=== PATIENT | female | born 2000 | race Two or more races ===

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

== ENCOUNTER 2020-12-04 20:19 | Emergency (ER) | payer OTHER ==
[~2020-12-04] VITALS: Ht 162.6 cm; Wt 98.0 kg
[2020-12-04 22:28] VITALS: BP 138/89
== END 2020-12-04 22:32 | disposition home or self-care (01) ==
LOC: ER 20:19
DX: R07.89 Other chest pain (principal); F41.9 Anxiety disorder, unspecified; F32.9 Major depressive disorder, single episode, unspecified
CPT/HCPCS: 71046; 93005; 99283

== ENCOUNTER 2020-12-21 08:59 | Emergency (ER) | payer OTHER ==
[~2020-12-21] VITALS: Ht 162.6 cm; Wt 110.0 kg
[2020-12-21] MEDS ORDERED: SODIUM CHLORIDE 0.9% 1,000 ML IV ONE (09:15)
[2020-12-21 09:38] LABS: BASOPHILS % 0.3 % (0.0-2.0); HEMATOCRIT. 37.6 % (36.0-48.0); HEMOGLOBIN. 13.3 g/dL (12.0-16.0); LYMPHOCYTES % 25.4 % (20.0-50.0); MEAN CORPUSCULAR HEMOGLOBIN 31.4 pg (28.0-32.0); MEAN CORPUSCULAR VOLUME 89.1 fL (81.0-99.0); MEAN PLATELET VOLUME 8.5 fl (7.4-10.4); MONOCYTES % 6.2 % (2.0-8.0); NEUTROPHILS % 67.1 % (40.0-76.0); PLATELET 264 x1000/uL (130-400); RED BLOOD CELL COUNT 4.22 mill/uL (4.2-5.4); RED CELL DISTRIBUTION WIDTH 13.3 % (11.6-14.6)
[2020-12-21 09:46] LABS: CHLORIDE 108 mEq/L (98-107)
[2020-12-21 09:48] LABS: HCG SCREEN NEGATIVE
[2020-12-21 10:24] LABS: CLARITY URINE CLEAR (CLEAR); COLOR URINE YELLOW (YELLOW); KETONES URINE NEGATIVE (NEGATIVE); LEUKOCYTE ESTERASE URINE 2+ (NEGATIVE); NITRITE URINE NEGATIVE (NEGATIVE); OCCULT BLOOD URINE NEGATIVE (NEGATIVE); PH URINE 7.5 (4.5-8.0); PROTEIN URINE NEGATIVE (NEGATIVE); SPECIFIC GRAVITY URINE 1.017 (1.005-1.030); UROBILINOGEN URINE 0.2 E.U./dL (0.2-1.0)
[2020-12-21] MEDS ORDERED: DOCU100T PO (11:59)
[2020-12-21] MEDS ORDERED: MOM MT (11:59)
[2020-12-21] MEDS ORDERED: NITR-87 MT (12:07)
[2020-12-21 12:14] VITALS: BP 115/70
== END 2020-12-21 12:17 | disposition home or self-care (01) ==
LOC: ER 08:59
DX: T18.5XXA Foreign body in anus and rectum, initial encounter (principal); K59.00 Constipation, unspecified; X58.XXXA Exposure to other specified factors, initial encounter; Y93.89 Activity, other specified; Y92.89 Other specified places as the place of occurrence of the external cause; Y99.8 Other external cause status
CPT/HCPCS: 36415; 72170; 80053; 81003; 81025; 83690; 84703; 85025; 99285; J7030; Z7610

== ENCOUNTER 2020-12-27 21:01 | Emergency (ER) | payer OTHER ==
[~2020-12-27] VITALS: Ht 162.6 cm; Wt 105.0 kg
[~2020-12-27 21:01] MED LIST: DOCU100T PO; MOM MT; NITR-87 MT
[2020-12-27] MEDS ORDERED: CEFTRIAXONE 1 G PREMIX 50 ML IV ONE (22:45)
[2020-12-27] MEDS ORDERED: SODIUM CHLORIDE 0.9% 1,000 ML IV ONE (22:45)
[2020-12-27 23:09] LABS: BASOPHILS % 0.8 % (0.0-2.0); HEMATOCRIT. 40.4 % (36.0-48.0); HEMOGLOBIN. 13.7 g/dL (12.0-16.0); LYMPHOCYTES % 31.1 % (20.0-50.0); MEAN CORPUSCULAR HEMOGLOBIN 30.1 pg (28.0-32.0); MEAN CORPUSCULAR VOLUME 88.4 fL (81.0-99.0); MEAN PLATELET VOLUME 8.5 fl (7.4-10.4); MONOCYTES % 6.5 % (2.0-8.0); NEUTROPHILS % 60.6 % (40.0-76.0); PLATELET 295 x1000/uL (130-400); RED BLOOD CELL COUNT 4.57 mill/uL (4.2-5.4); RED CELL DISTRIBUTION WIDTH 13.1 % (11.6-14.6)
[2020-12-27 23:17] LABS: CHLORIDE 108 mEq/L (98-107)
[2020-12-27 23:22] LABS: HCG SCREEN NEGATIVE
[2020-12-27 23:57] LABS: CLARITY URINE CLEAR (CLEAR); COLOR URINE YELLOW (YELLOW); KETONES URINE NEGATIVE (NEGATIVE); LEUKOCYTE ESTERASE URINE 2+ (NEGATIVE); NITRITE URINE NEGATIVE (NEGATIVE); OCCULT BLOOD URINE NEGATIVE (NEGATIVE); PROTEIN URINE NEGATIVE (NEGATIVE); SPECIFIC GRAVITY URINE 1.013 (1.005-1.030); UROBILINOGEN URINE 0.2 E.U./dL (0.2-1.0)
[2020-12-28] MEDS ORDERED: SULF1TAB48 MT (00:10)
[2020-12-28 02:30] VITALS: BP 124/79
== END 2020-12-28 02:55 | disposition home or self-care (01) ==
LOC: ER 21:01
DX: N12 Tubulo-interstitial nephritis, not specified as acute or chronic (principal)
CPT/HCPCS: 36415; 80053; 81003; 81025; 84703; 85025; 96365; 99284; J0696; J7030

== ENCOUNTER 2021-01-28 20:18 | Emergency (ER) | payer OTHER ==
[~2021-01-28] VITALS: Ht 162.6 cm; Wt 105.0 kg
[~2021-01-28 20:18] MED LIST changes: +CEPH500C2 MT; +SULF1TAB48 MT
[2021-01-29 01:00] VITALS: BP 111/72
[2021-01-29] MEDS ORDERED: FEO RC (01:03)
== END 2021-01-29 01:14 | disposition home or self-care (01) ==
LOC: ER 20:18
DX: K59.00 Constipation, unspecified (principal); R10.9 Unspecified abdominal pain; Z87.440 Personal history of urinary (tract) infections; Z79.899 Other long term (current) drug therapy
CPT/HCPCS: 99282

== ENCOUNTER 2021-02-05 15:14 | Emergency (ER) | payer OTHER ==
[~2021-02-05] VITALS: Ht 162.6 cm; Wt 106.0 kg
[~2021-02-05 15:14] MED LIST changes: +FEO RC
[2021-02-05] MEDS ORDERED: ACETAMINOPHEN 325MG TABLET PO STA (20:18)
[2021-02-05] MEDS ORDERED: SODIUM CHLORIDE 0.9% 500 ML IV ONE (20:30)
[2021-02-05 21:02] LABS: BASOPHILS % 0.3 % (0.0-2.0); HEMATOCRIT. 41.8 % (36.0-48.0); HEMOGLOBIN. 14.5 g/dL (12.0-16.0); MEAN CORPUSCULAR HEMOGLOBIN 31.3 pg (28.0-32.0); MEAN CORPUSCULAR VOLUME 90.2 fL (81.0-99.0); MEAN PLATELET VOLUME 8.3 fl (7.4-10.4); MONOCYTES % 5.9 % (2.0-8.0); NEUTROPHILS % 63.8 % (40.0-76.0); PLATELET 324 x1000/uL (130-400); RED BLOOD CELL COUNT 4.64 mill/uL (4.2-5.4)
[2021-02-05 21:04] LABS: CLARITY URINE CLEAR (CLEAR); COLOR URINE YELLOW (YELLOW); KETONES URINE 1+ (NEGATIVE); LEUKOCYTE ESTERASE URINE 1+ (NEGATIVE); NITRITE URINE NEGATIVE (NEGATIVE); OCCULT BLOOD URINE NEGATIVE (NEGATIVE); PROTEIN URINE NEGATIVE (NEGATIVE); SPECIFIC GRAVITY URINE 1.023 (1.005-1.030); UROBILINOGEN URINE 0.2 E.U./dL (0.2-1.0)
[2021-02-05 21:05] LABS: CHLORIDE 110 mEq/L (98-107)
[2021-02-05 21:11] LABS: HCG SCREEN NEGATIVE
[2021-02-05] MEDS ORDERED: IOHEXOL-350 100 ML BOTTLE ONE (22:48)
[2021-02-05] MEDS ORDERED: CEPH500T MT (23:17)
[2021-02-05] MEDS ORDERED: IBUP-2028 MT (23:17)
[2021-02-06 00:07] VITALS: BP 132/84
== END 2021-02-06 00:08 | disposition home or self-care (01) ==
LOC: ER 15:39
DX: N39.0 Urinary tract infection, site not specified (principal); R51.9 Headache, unspecified; Z86.16 Personal history of COVID-19; Z87.440 Personal history of urinary (tract) infections
CPT/HCPCS: 36415; 70496; 80053; 81003; 81025; 84703; 85025; 96360; 99285; J7030; Q9967

== ENCOUNTER 2021-10-07 08:02 | Emergency (ER) | payer OTHER ==
[~2021-10-07] VITALS: Ht 162.6 cm; Wt 104.0 kg
[~2021-10-07 08:02] MED LIST changes: +CEPH500T MT; +IBUP-2028 MT
[2021-10-07 08:36] LABS: CLARITY URINE CLEAR (CLEAR); COLOR URINE YELLOW (YELLOW); KETONES URINE NEGATIVE (NEGATIVE); LEUKOCYTE ESTERASE URINE TRACE (NEGATIVE); NITRITE URINE NEGATIVE (NEGATIVE); OCCULT BLOOD URINE NEGATIVE (NEGATIVE); PH URINE 5.5 (4.5-8.0); PROTEIN URINE NEGATIVE (NEGATIVE); SPECIFIC GRAVITY URINE 1.015 (1.005-1.030); UROBILINOGEN URINE 0.2 E.U./dL (0.2-1.0)
[2021-10-07] MEDS ORDERED: NITR-87 MT (08:41)
[2021-10-07] MEDS ORDERED: PYR200 MT (08:41)
[2021-10-07 08:52] VITALS: BP 136/84
== END 2021-10-07 08:54 | disposition home or self-care (01) ==
LOC: ER 08:02
DX: R30.0 Dysuria (principal); R10.2 Pelvic and perineal pain; R39.15 Urgency of urination; R07.89 Other chest pain; R03.0 Elevated blood-pressure reading, without diagnosis of hypertension; Z87.440 Personal history of urinary (tract) infections
CPT/HCPCS: 81003; 81025; 99283

== ENCOUNTER 2021-10-24 03:57 | Emergency (ER) | payer OTHER ==
[~2021-10-24] VITALS: Ht 162.6 cm; Wt 107.1 kg
[~2021-10-24 03:57] MED LIST changes: +PYR200 MT
[2021-10-24 04:04] VITALS: BP 135/98
[2021-10-24 05:25] LABS: BASOPHILS % 0.6 % (0.0-2.0); EOSINOPHILS % 1.6 % (0.0-5.0); HEMATOCRIT. 39.9 % (36.0-48.0); HEMOGLOBIN. 13.8 g/dL (12.0-16.0); LYMPHOCYTES % 32.3 % (20.0-50.0); MEAN CORPUSCULAR HEMOGLOBIN 30.9 pg (28.0-32.0); MEAN CORPUSCULAR VOLUME 89.5 fL (81.0-99.0); MEAN PLATELET VOLUME 8.1 fl (7.4-10.4); MONOCYTES % 5.6 % (2.0-8.0); NEUTROPHILS % 59.9 % (40.0-76.0); PLATELET 317 x1000/uL (130-400); RED BLOOD CELL COUNT 4.45 mill/uL (4.2-5.4); RED CELL DISTRIBUTION WIDTH 13.4 % (11.6-14.6)
[2021-10-24 05:31] LABS: CHLORIDE 108 mEq/L (98-107)
[2021-10-24] MEDS ORDERED: KETOROLAC 30MG/ML VIAL IV STA (05:57)
[2021-10-24] MEDS ORDERED: ONDANSETRON HCL 4MG/2ML INJ IV STA (05:57)
[2021-10-24 06:19] LABS: CLARITY URINE CLEAR (CLEAR); COLOR URINE YELLOW (YELLOW); KETONES URINE NEGATIVE (NEGATIVE); LEUKOCYTE ESTERASE URINE 1+ (NEGATIVE); NITRITE URINE NEGATIVE (NEGATIVE); OCCULT BLOOD URINE 1+ (NEGATIVE); PROTEIN URINE NEGATIVE (NEGATIVE); SPECIFIC GRAVITY URINE 1.015 (1.005-1.030); UROBILINOGEN URINE 0.2 E.U./dL (0.2-1.0)
[2021-10-24 06:54] LABS: HCG SCREEN NEGATIVE
[2021-10-24] MEDS ORDERED: TOPUD PO (08:50)
== END 2021-10-24 09:24 | disposition home or self-care (01) ==
LOC: ER 03:57
DX: R10.13 Epigastric pain (principal); R11.2 Nausea with vomiting, unspecified; R03.0 Elevated blood-pressure reading, without diagnosis of hypertension
CPT/HCPCS: 36415; 76705; 80053; 81003; 81025; 83690; 84703; 85025; 96374; 96375; 99284; J1885; J2405

== ENCOUNTER 2024-08-01 20:02 | Emergency (ER) | payer MEDICAID, OTHER ==
[~2024-08-01] VITALS: Ht 167.6 cm; Wt 120.0 kg
[~2024-08-01 20:02] MED LIST changes: +TOPUD PO
[2024-08-01 20:16] VITALS: TEMP 36.9; O2SAT 98
[2024-08-01 23:32] VITALS: BP 162/82; PULSE 82; RESP 16
[2024-08-01] MEDS: TRAMADOL 50MG TABLET PO ONE (23:32)
[2024-08-02 02:59] LABS: COLOR URINE YELLOW (YELLOW)
[2024-08-02 03:01] LABS: CLARITY URINE CLOUDY (CLEAR)
[2024-08-02 03:02] LABS: PH URINE 6.5 (4.5-8.0); SPECIFIC GRAVITY URINE 1.025 (1.005-1.030)
[2024-08-02 03:03] LABS: GLUCOSE URINE NEGATIVE (NEGATIVE); PROTEIN URINE 1+ (NEGATIVE)
[2024-08-02 03:07] LABS: KETONES URINE 3+ (NEGATIVE); NITRITE URINE NEGATIVE (NEGATIVE); OCCULT BLOOD URINE NEGATIVE (NEGATIVE); UROBILINOGEN URINE 0.2 E.U./dL (0.2-1.0)
[2024-08-02 03:08] LABS: LEUKOCYTE ESTERASE URINE 1+ (NEGATIVE)
[2024-08-02] MEDS ORDERED: TRAM50TA3 MT (03:22)
[2024-08-02 04:58] LABS: SQUAMOUS EPITHELIAL CELL URINE 1+ /lpf (RARE/1+)
[2024-08-02 05:03] LABS: WBC URINE 15-25 /hpf (0-2)
[2024-08-02 05:04] LABS: RBC URINE 0-2 /hpf (0-2)
[2024-08-02 05:05] LABS: BACTERIA URINE 2+
== END 2024-08-02 03:40 | disposition home or self-care (01) ==
LOC: ER 20:02
DX: M54.50 Low back pain, unspecified (principal); Z98.1 Arthrodesis status; M54.9 Dorsalgia, unspecified
CPT/HCPCS: 72131; 81003; 81025; 99284

== ENCOUNTER 2025-03-17 20:44 | Emergency (ER) | payer OTHER ==
[~2025-03-17] VITALS: Ht 162.6 cm; Wt 119.2 kg
[~2025-03-17 20:44] MED LIST changes: +TRAM50TA3 MT
[2025-03-17 20:49] VITALS: PULSE 80; RESP 16; O2SAT 100
[2025-03-17 20:53] VITALS: BP 130/84; TEMP 36.8; O2SAT 100
[2025-03-17] MEDS: ACETAMINOPHEN 500MG TABLET PO ONE (21:34)
[2025-03-17] MEDS: ONDANSETRON 4MG ODT PO ONE (21:35)
[2025-03-17 21:43] LABS: BASOPHILS % 0.7 % (0.0-2.0); EOSINOPHILS % 1.3 % (0.0-5.0); HEMATOCRIT. 39.6 % (36.0-48.0); HEMOGLOBIN. 13.2 g/dL (12.0-16.0); LYMPHOCYTES % 27.6 % (20.0-50.0); MEAN PLATELET VOLUME 8.5 fl (7.4-10.4); MONOCYTES % 6.3 % (2.0-8.0); NEUTROPHILS % 64.1 % (40.0-76.0); PLATELET 343 x1000/uL (130-400); RED BLOOD CELL COUNT 4.42 mill/uL (4.2-5.4); RED CELL DISTRIBUTION WIDTH 12.8 % (11.6-14.6)
[2025-03-17 21:59] LABS: CREATININE 0.7 mg/dL (0.6-1.0); UREA NITROGEN BLOOD 8 mg/dL (9-23)
[2025-03-17 22:01] LABS: ASPARTATE AMINOTRANSFERASE 11 IU/L (<34); BILIRUBIN DIRECT < 0.1 mg/dL (<=3.0); BILIRUBIN TOTAL 0.3 mg/dL (0.1-1.0); PROTEIN TOTAL 7.0 g/dL (6.0-8.3)
[2025-03-17 22:17] LABS: B-HCG QUANTITATIVE 77481 mIU/mL (<6)
[2025-03-17] MEDS ORDERED: ONDA4TAB50 MT (22:23)
== END 2025-03-17 22:32 | disposition home or self-care (01) ==
LOC: ER 20:44
DX: R07.89 Other chest pain (principal); N89.8 Other specified noninflammatory disorders of vagina
CPT/HCPCS: 99285; 71045; 80076; 80048; 84702; 83690; 85025; 36415; 93005; Q0162

== ENCOUNTER 2025-03-21 13:09 | Emergency (ER) | payer MEDICAID, OTHER ==
[~2025-03-21] VITALS: Ht 167.6 cm; Wt 114.0 kg
[~2025-03-21 13:09] MED LIST changes: +ONDA4TAB50 MT
[2025-03-21 13:16] VITALS: TEMP 36.8; O2SAT 99
[2025-03-21 15:05] LABS: BASOPHILS % 1.3 % (0.0-2.0); EOSINOPHILS % 1.5 % (0.0-5.0); HEMATOCRIT. 35.1 % (36.0-48.0); HEMOGLOBIN. 12.0 g/dL (12.0-16.0); LYMPHOCYTES % 24.2 % (20.0-50.0); MEAN PLATELET VOLUME 8.4 fl (7.4-10.4); MONOCYTES % 6.4 % (2.0-8.0); NEUTROPHILS % 66.6 % (40.0-76.0); PLATELET 286 x1000/uL (130-400); RED BLOOD CELL COUNT 3.98 mill/uL (4.2-5.4); RED CELL DISTRIBUTION WIDTH 12.6 % (11.6-14.6)
[2025-03-21 15:19] VITALS: BP 113/73; PULSE 76; RESP 18; O2SAT 98
[2025-03-21 15:21] LABS: CREATININE 0.5 mg/dL (0.6-1.0); UREA NITROGEN BLOOD 11 mg/dL (9-23)
[2025-03-21 16:00] LABS: B-HCG QUANTITATIVE 88096 mIU/mL (<6)
== END 2025-03-21 15:28 | disposition home or self-care (01) ==
LOC: ER 13:09
DX: O20.9 Hemorrhage in early pregnancy, unspecified (principal); R10.2 Pelvic and perineal pain; Z3A.08 8 weeks gestation of pregnancy; Z79.899 Other long term (current) drug therapy
CPT/HCPCS: 36415; 76801; 80048; 84702; 85025; 99284; A4606